=== PATIENT | male | born 1945 | race Caucasian/White ===

== ENCOUNTER → 2023-07-19 14:07 | Outpatient (CLI) | payer MEDICARE, OTHER, SELFPAY ==
[2023-07-19 19:15] LABS: Calcium 9.6 mg/dL (8.4-10.2); Carbon Dioxide 26 mmol/L (22-32); Chloride 101 mmol/L (98-107); Estimated Glomerular Filt Rate > 60 mL/min (>60); Glucose 116 mg/dL (80-110); HEMOLYSIS < 15 (0-50); Potassium 4.1 mmol/L (3.4-5.1); Sodium 138 mmol/L (137-145)
[2023-07-19 19:20] LABS: Add Manual Diff / Slide Review NO; Basophils Absolute Auto 0 /uL (0-100); Basophils Percent Auto 0.3 % (0-2); Eosinophils Absolute Auto 100 /uL (0-450); Eosinophils Percent Auto 1.4 % (2-4); Hematocrit 38.4 % (41-53); Hemoglobin 13.5 g/dL (13.5-17.5); Lymphocytes Absolute Auto 1000 /uL (1100-4500); Mean Corpuscular HGB Conc 35.2 % (30-36); Mean Corpuscular Hemoglobin 32.4 PG (26-34); Mean Corpuscular Volume 92.1 fL (80-100); Monocytes Absolute Auto 600 /uL (0-900); Monocytes Percent Auto 8.3 % (3-14); Neutrophils Absolute Auto 5800 /uL (1500-7000); Platelet Count 148 X10^3/uL (150-400); Red Blood Cell Count 4.17 X10^6/uL (4.5-5.9); Red Cell Distribution Width 13.6 % (11.6-14.8); White Blood Cell Count 7.5 X10^3/uL (4.5-11.0)
[2023-07-19 19:32] LABS: Blood Urea Nitrogen 30 mg/dL (9-20)
== END ==
PROVIDERS: Visit Provider Surgery
DX: Z01.818 Encounter for other preprocedural examination (principal); K40.90 Unilateral inguinal hernia, without obstruction or gangrene, not specified as recurrent
CPT/HCPCS: 80048; 85025

== ENCOUNTER → 2023-09-07 11:06 | Outpatient (CLI) | payer MEDICARE, OTHER, SELFPAY ==
[2023-09-07 19:06] LABS: Add Manual Diff / Slide Review NO; Basophils Absolute Auto 0 /uL (0-100); Basophils Percent Auto 0.5 % (0-2); Eosinophils Absolute Auto 200 /uL (0-450); Eosinophils Percent Auto 2.1 % (2-4); Hematocrit 39.4 % (41-53); Hemoglobin 13.9 g/dL (13.5-17.5); Lymphocytes Absolute Auto 1800 /uL (1100-4500); Lymphocytes Percent Auto 24.9 % (25-40); Mean Corpuscular HGB Conc 35.1 % (30-36); Monocytes Absolute Auto 700 /uL (0-900); Monocytes Percent Auto 10.2 % (3-14); Neutrophils Absolute Auto 4400 /uL (1500-7000); Neutrophils Percent Auto 62.3 % (50-75); Platelet Count 172 X10^3/uL (150-400); Red Blood Cell Count 4.33 X10^6/uL (4.5-5.9); Red Cell Distribution Width 13.7 % (11.6-14.8)
[2023-09-07 19:51] LABS: BUN Creatinine Ratio 22.6 (6-22); Blood Urea Nitrogen 30 mg/dL (9-20); Calcium 9.6 mg/dL (8.4-10.2); Carbon Dioxide 24 mmol/L (22-32); Chloride 101 mmol/L (98-107); Estimated Glomerular Filt Rate 55 mL/min (>60); Glucose 86 mg/dL (80-110); HEMOLYSIS < 15 (0-50); Potassium 3.9 mmol/L (3.4-5.1); Sodium 135 mmol/L (137-145)
== END ==
PROVIDERS: Visit Provider Surgery
DX: Z01.818 Encounter for other preprocedural examination (principal)
CPT/HCPCS: 80048; 85025

== ENCOUNTER → 2024-04-04 10:37 | Outpatient (CLI) | payer MEDICARE, OTHER, SELFPAY ==
--- NOTE | 2024-04-04 10:38 | DI.MRI.S_ITS ---
PROCEDURE: MR LUMBAR SPINE WO CON INDICATIONS: RADICULOPATHY LUMBAR REGION TECHNIQUE: Noncontrast sagittal T1 spin echo and T2 fast echo, sagittal STIR, and T2 fast spin echo through the lumbar spine. In cases with scoliosis, additional coronal T2 fast spin echo may be performed. COMPARISON: None. FINDINGS: Image quality: Excellent. Alignment and Curvature: Mild levocurvature of the lumbar spine. Mild retrolisthesis of L2 on L3 and L3 on L4. Bone Marrow: Multilevel degenerative endplate changes. Marrow is of normal overall signal. No acute vertebral body compression fractures. Spinal Cord: Conus medullaris terminates at the L1 level. Visualized cord demonstrates normal signal and size. Paraspinous Soft Tissues: No paravertebral masses. T12-L1: Disc desiccation and mild height loss. Diffuse disc bulge. Small central disc extrusion extending inferiorly. Mild central canal stenosis. Facet arthropathy. No significant neural foraminal stenosis. L1-L2: Disc desiccation and mild height loss. Mild diffuse disc bulge, asymmetric to the right. Facet arthropathy. No significant central canal stenosis. No neural foraminal stenosis. L2-L3: Disc desiccation and moderate disc height loss. Mild diffuse disc bulge. Facet arthropathy and thickening of ligamentum flavum. Mild to moderate central canal stenosis. Narrowing of the lateral recesses. Mild to moderate bilateral neural foraminal stenosis. L3-L4: Disc desiccation and mild height loss. Diffuse disc bulge. Facet arthropathy and thickening of ligamentum flavum. Epidural lipomatosis. Moderate to severe central canal stenosis. Severe right and moderate left neural foraminal stenosis. L4-L5: Disc desiccation and moderate disc height loss. Diffuse disc bulge. Facet arthropathy and thickening of ligamentum flavum. Mild to moderate central canal stenosis. Moderate bilateral neural foraminal stenosis. L5-S1: Disc desiccation height loss. Diffuse disc bulge. Facet arthropathy. Mild central canal stenosis. Severe left and moderate right neural foraminal stenosis. IMPRESSION: 1. Multilevel degenerative changes of the lumbar spine as described above. 2. Moderate to severe central canal stenosis at L3-L4. 3. Severe neural foraminal stenosis on the right at L3-L4 and left at L5-S1. Dictated by: Kerwin Charlton M.D. on 04/04/2024 at 16:35 Approved by: Kerwin Charlton M.D. on 04/04/2024 at 16:39
== END ==
PROVIDERS: PCP Nurse Practitioner; Referring Provider Nurse Practitioner; Visit Provider Nurse Practitioner
DX: M47.26 Other spondylosis with radiculopathy, lumbar region (principal); M47.27 Other spondylosis with radiculopathy, lumbosacral region; M48.061 Spinal stenosis, lumbar region without neurogenic claudication; M48.07 Spinal stenosis, lumbosacral region; M51.16 Intervertebral disc disorders with radiculopathy, lumbar region; M51.17 Intervertebral disc disorders with radiculopathy, lumbosacral region
CPT/HCPCS: 72148

== ENCOUNTER → 2025-03-03 11:40 | Outpatient (CLI) | payer MEDICARE, OTHER, SELFPAY ==
--- NOTE | 2025-03-03 11:41 | DI.MRI.S_ITS ---
PROCEDURE: MR KNEE RT WO CON INDICATIONS: Evaluate right knee pain TECHNIQUE: Noncontrast sagittal PD fast spin echo and T2 fast spin echo with fat saturation, sagittal 3-D FLASH with fat saturation; coronal T1 spin echo and PD fast spin echo with fat saturation, and axial PD fast spin echo with fat saturation through the knee. COMPARISON: [facility], CR, ORTHO-XR KNEE WB RIGHT, 02/25/2025, 14:38. FINDINGS: Image quality: Excellent. Menisci: The medial and lateral menisci demonstrate normal morphology and internal signal. The meniscal root ligaments appear intact. Cruciate ligaments: The anterior and posterior cruciate ligaments appear intact. Medial structures: The medial collateral ligament appears intact. The posterior oblique ligament, semimembranosus tendon insertions, oblique popliteal ligament, and meniscocapsular junction appear intact. Visualized portions of the pes anserinus tendons appear normal. No abnormal bursal fluid. Lateral structures: The lateral collateral ligament, long and short heads of the biceps femoris tendon appear intact. The popliteus tendon appears normal; the popliteofibular ligament appears intact. The posterosuperior and anteroinferior popliteomeniscal fascicles appear intact. The arcuate and fabellofibular ligaments appear intact, on either side of the lateral inferior geniculate artery. Iliotibial band appears normal. Anterior structures: The quadriceps and patellar tendons appear intact. Patellar alignment is normal. No femoral trochlear dysplasia or ventral trochlear prominence. No edema in the infrapatellar fat pad. Bones and cartilage: Mild chondrosis of the patellofemoral compartment, with mild chondral irregularity and mild subchondral marrow edema in the central trochlea. Mild chondrosis of the medial compartment with mild chondral irregularity in the medial aspect of the weight-bearing portion of the medial femoral condyle. Cartilage of the lateral compartment is grossly well maintained. No acute fracture. Joint space: Small knee effusion. No intra-articular body. No popliteal cyst. Popliteal vasculature is unremarkable. IMPRESSION: 1. Mild, patellofemoral compartment predominant chondrosis. Dictated by: Catarina Lee M.D. on 03/03/2025 at 12:54 Approved by: Catarina Lee M.D. on 03/03/2025 at 13:04
== END ==
PROVIDERS: Referring Provider Orthopaedic Surgery Adult Reconstructive Orthopaedic Surgery; Visit Provider Orthopaedic Surgery Adult Reconstructive Orthopaedic Surgery
DX: M22.41 Chondromalacia patellae, right knee (principal); M25.461 Effusion, right knee; M25.561 Pain in right knee
CPT/HCPCS: 73721